=== PATIENT | male | born 2000 | race Caucasian/White ===

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

== ENCOUNTER 2022-06-26 09:51 | Emergency (ER) | payer OTHER ==
[~2022-06-26] VITALS: Ht 185.4 cm; Wt 64.6 kg
[~2022-06-26 09:51] MED LIST changes: +HYDR-3715 PO; -LR 1,000 ML IV ONE; -ZONI100C17 PO; +ZONI100C67 PO
[2022-06-26 12:45] LABS: GC DNA AMPLIFICATION NEGATIVE (NEGATIVE)
[2022-06-26 13:08] VITALS: BP 129/67
== END 2022-06-26 13:10 | disposition home or self-care (01) ==
LOC: M ED 09:51
DX: R30.0 Dysuria (principal); Z87.448 Personal history of other diseases of urinary system

== ENCOUNTER → 2024-10-07 | Outpatient (REF) | payer OTHER ==
[2024-10-07 21:19] LABS: Trichomonas vaginalis (AMP) NOT DETECTED (NEGATIVE)
[2024-10-07 21:42] LABS: GC DNA AMPLIFICATION NEGATIVE (NEGATIVE)
== END ==
LOC: M LAB REF 19:57
PROVIDERS: ATTEND Physician Assistant
DX: R30.0 Dysuria (principal)

== ENCOUNTER 2024-10-13 11:23 | Emergency (ER) | payer OTHER ==
[~2024-10-13] VITALS: Ht 185.4 cm; Wt 68.4 kg
[2024-10-13 11:36] VITALS: TEMP 97.6
[2024-10-13] MEDS ORDERED: SERT50TA29 (11:40)
[2024-10-13 12:12] LABS: KETONE, URINE AUTO RFX NEGATIVE (NEGATIVE); LEUKOCYTE ESTERASE UR AUTO RFX NEGATIVE (NEGATIVE); NITRITE, URINE AUTO RFX NEGATIVE (NEGATIVE); RBC, URINE AUTO RFX 0 /HPF (0-3); SQUAM EPITHELIAL CELL UR AURFX 0 /HPF (0-6); WBC, URINE AUTO RFX 0 /HPF (0-3)
[2024-10-13 13:16] LABS: Trichomonas vaginalis (AMP) NOT DETECTED (NEGATIVE)
[2024-10-13 13:40] LABS: GC DNA AMPLIFICATION NEGATIVE (NEGATIVE)
[2024-10-13 14:23] VITALS: BP 127/78; O2SAT 97
[2024-10-13] MEDS ORDERED: ISOVUE-370 76% 100ML VIAL As Ordered ONE (14:47)
== END 2024-10-13 15:39 | disposition home or self-care (01) ==
LOC: M ED 11:23
DX: N50.811 Right testicular pain (principal); N50.3 Cyst of epididymis
CPT/HCPCS: 74177; 76870; 80047; 81001; 87661; 87810; 87850; 93976; 99284; Q9967

== ENCOUNTER → 2024-12-27 | Outpatient (REF) | payer OTHER ==
[~2024-12-27] MED LIST changes: +SERT50TA29
[2024-12-27 18:37] LABS: GC DNA AMPLIFICATION NEGATIVE (NEGATIVE)
== END ==
LOC: M LAB REF 16:45
PROVIDERS: ATTEND Family Medicine
DX: R30.9 Painful micturition, unspecified (principal)

== ENCOUNTER → 2025-05-05 | Outpatient (REF) | payer OTHER ==
[2025-05-05 17:57] LABS: APPEARANCE, URINE CLEAR (CLEAR); BACTERIA, URINE AUTO NEGATIVE (NEGATIVE); BILIRUBIN, URINE AUTO NEGATIVE (NEGATIVE); BLOOD, URINE BLOOD NEGATIVE (NEGATIVE); GLUCOSE, URINE (UA) AUTO NEGATIVE (NEGATIVE); KETONE, URINE AUTO NEGATIVE (NEGATIVE); LEUKOCYTE ESTERASE, URINE AUTO NEGATIVE (NEGATIVE); NITRITE, URINE AUTO NEGATIVE (NEGATIVE); PROTEIN, URINE AUTO NEGATIVE (NEGATIVE); RBC, URINE AUTO 1 /HPF (0-3); SPECIFIC GRAVITY URINE AUTO 1.009 (1.002-1.035); SQUAMOUS EPITHELIAL CELL UR AU 0 /HPF (0-6); UROBILINOGEN, URINE AUTO 0.2 mg/dL (0.0-2.0); WBC, URINE AUTO 0 /HPF (0-3)
== END ==
LOC: M SMT 16:58
PROVIDERS: ATTEND Nurse Practitioner Family
DX: R31.29 Other microscopic hematuria (principal)

== ENCOUNTER → 2025-06-02 | Outpatient (CLI) | payer OTHER | LOC: M RAD 10:24 | PROVIDERS: ATTEND Nurse Practitioner Family | DX: R31.29 Other microscopic hematuria (principal) ==